=== PATIENT | male | born 1965 | race Caucasian/White ===

== ENCOUNTER 2022-05-02 13:34 | Emergency (ER) | payer OTHER ==
--- NOTE | 2022-05-02 14:22 | ERPHSYRPT ---
- History of Present Illness Time Seen by Provider: 05/02/22 14:22 Patient Subjective Stated Complaint: pt here from cardiac rehab, nurse states she was unable to get htn down. pt only co is feeling tried, Triage Nursing Assessment: pt alert, resp easy, skin w/d/pale, able to walk in, Allergies/Adverse Reactions: No Known Drug Allergies Allergy (Unverified 05/02/22 13:43) Home Medications: Albuterol Sulfate [Albuterol Sulfate Hfa] 1 ea DAILY 05/02/22 [History] Clopidogrel Bisulfate [Clopidogrel] 75 mg PO DAILY 05/02/22 [History] Lisinopril 20 mg [Zestril 20 MG] 20 mg PO DAILY 05/02/22 [History] Metoprolol Succinate 50 mg [Toprol Xl 50 MG] 50 mg PO DAILY 05/02/22 [History] Tamsulosin HCl 0.4 mg [Flomax 0.4 MG] 1 ea DAILY 05/02/22 [History] Hx Tetanus, Diphtheria Vaccination/Date Given: No Hx Influenza Vaccination/Date Given: No Hx Pneumococcal Vaccination/Date Given: No Immunizations Up to Date: Yes Travel Risk - International Travel Have you traveled outside of the country in past 3 weeks: No - Coronavirus Screening Are you exhibiting any of the following symptoms?: No Close contact with a COVID-19 positive Pt in past 14-21 Days: No - Vaccine Status Have you recieved a Covid-19 vaccination: Yes Recreational Therapist: Unknown - Vaccination Dates Date of 2cond Vaccination (if applicable): 2020 Dates if Unknown: ? - Past Medical History Cardiac History: Coronary Artery Disease, Hypertension, Myocardial Infarction (MA) GI Medical History: Ulcer - Past Surgical History Past Surgical History: Yes Cardiac: CABG Gastrointestinal: Other Musculoskeletal: Orthopedic Surgery Other Surgical History: ulcer surgery - Social History Smoking Status: Never smoker Exposure to second hand smoke: No Drug Use: none Patient Lives Alone: No - Nursing Vital Signs Nursing Vital Signs: Initial Vital Signs Temperature 97.2 F 05/02/22 13:56 Pulse Rate 60 05/02/22 13:56 Respiratory Rate 18 05/02/22 13:56 Blood Pressure 182/112 05/02/22 13:56 O2 Sat by Pulse Oximetry 95 05/02/22 13:56 Pain Scale Pain Intensity 0 - Physical Exam SpO2: 95 - Course Nursing assessment & vital signs reviewed: Yes EKG Interpreted by Me: RATE (59), Sinus Rhythm, NORMAL AXIS, prolonged QT interval (471), Q-wave (old), Other (No new ST/T wave changes) Ordered Tests: Active Orders 24 hr Category Date Time Status Radiological Defense Officer STAT Care 05/02/22 14:23 Active EKG-ER Only STAT Care 05/02/22 14:22 Active Pulse Oximetry (ED) STAT Care 05/02/22 14:22 Active CHEST WITH CONTRAST [CT] Stat Exams 05/02/22 14:55 Completed CBC W DIFF Stat Lab 05/02/22 14:23 Completed CMP Stat Lab 05/02/22 14:23 Completed D-DIMER QUANTITATIVE Stat Lab 05/02/22 14:23 Completed TROPONIN Q4H Lab 05/02/22 14:23 Completed TROPONIN Q4H Lab 05/02/22 18:30 Ordered TROPONIN Q4H Lab 05/02/22 22:30 Ordered Medication Summary Generic Name Dose Route Start Last Admin Trade Name Biggq PRN Reason Stop Dose Admin Chlorthalidone 25 mg 05/02/22 15:30 05/02/22 15:42 Chlorthalidone 25 Mg Tablet PO 06/01/22 15:29 25 mg DAILY JERAD Administration Discontinued Medications Generic Name Dose Route Start Last Admin Trade Name Freq PRN Reason Stop Dose Admin Hydralazine HCl 10 mg 05/02/22 14:24 05/02/22 15:42 Hydralazine Hcl 20 Mg/Ml Vial IV 05/02/22 14:25 10 mg STAT ONE Administration Hydralazine HCl Confirm 05/02/22 15:21 Hydralazine Hcl 20 Mg/Ml Vial Administered 05/02/22 15:22 Dose 20 mg .ROUTE .STK-MED ONE Hydralazine HCl 20 mg 05/02/22 16:24 05/02/22 16:45 Hydralazine Hcl 20 Mg/Ml Vial IV 05/02/22 16:25 20 mg STAT ONE Administration Hydralazine HCl Confirm 05/02/22 16:45 Hydralazine Hcl 20 Mg/Ml Vial Administered 05/02/22 16:46 Dose 20 mg .ROUTE .STK-MED ONE Lab/Rad Data: Laboratory Result Diagrams 05/02/22 14:23 05/02/22 14:23 Laboratory Results 05/02/22 05/02/22 05/02/22 Range/Units 14:23 14:23 14:23 WBC (4.0-10.5) x10^3/uL RBC (4.1-5.6) x10^6/uL Hgb (12.5-18.0) g/dL Hct (42-50) % MCV (78-100) fL MCH (26-32) pg MCHC (32-36) g/dL RDW (11.5-14.0) % Plt Count (150-450) x10^3/uL MPV (7.5-11.0) fL Gran % (36.0-66.0) % Immature Gran % (Auto) (0.00-0.4) % Nucleat RBC Rel Count (0.00-0.1) % Eos # (Auto) (0-0.5) x10^3/uL Immature Gran # (Auto) (0.00-0.03) x10^3u/L Absolute Lymphs (auto) (1.0-4.6) x10^3/uL Absolute Monos (auto) (0.0-1.3) x10^3/uL Absolute Nucleated RBC (0.00-0.01) x10^3u/L Lymphocytes % (24.0-44.0) % Monocytes % (0.0-12.0) % Eosinophils % (0.00-5.0) % Basophils % (0.0-0.4) % Absolute Granulocytes (1.4-6.9) x10^3/uL Basophils # (0-0.4) x10^3/uL D-Dimer 1.44 H* (0.0-0.50) mg/L Sodium 140 (137-145) mmol/L Potassium 3.8 (3.5-5.1) mmol/L Chloride 107 (98-107) mmol/L Carbon Dioxide 24 (22-30) mmol/L Anion Gap 12.5 (5-15) MEQ/L BUN 21 H (9-20) mg/dL Creatinine 0.93 (0.66-1.25) mg/dL Estimated GFR > 60.0 ML/MIN Glucose 98 (74-106) mg/dL Calcium 8.5 (8.4-10.2) mg/dL Total Bilirubin 0.60 (0.2-1.3) mg/dL AST 33 (17-59) U/L ALT 21 (0-50) U/L Alkaline Phosphatase 80 (38-126) U/L Troponin I 0.050 H* (0.000-0.034) ng/mL Serum Total Protein 7.6 (6.3-8.2) g/dL Albumin 4.0 (3.5-5.0) g/dL 05/02/22 Range/Units 14:23 WBC 8.7 (4.0-10.5) x10^3/uL RBC 4.44 (4.1-5.6) x10^6/uL Hgb 12.8 (12.5-18.0) g/dL Hct 40.8 L (42-50) % MCV 91.9 (78-100) fL MCH 28.8 (26-32) pg MCHC 31.4 L (32-36) g/dL RDW 13.2 (11.5-14.0) % Plt Count 256 (150-450) x10^3/uL MPV 10.5 (7.5-11.0) fL Gran % 54.6 (36.0-66.0) % Immature Gran % (Auto) 0.2 (0.00-0.4) % Nucleat RBC Rel Count 0.0 (0.00-0.1) % Eos # (Auto) 0.23 (0-0.5) x10^3/uL Immature Gran # (Auto) 0.02 (0.00-0.03) x10^3u/L Absolute Lymphs (auto) 2.85 (1.0-4.6) x10^3/uL Absolute Monos (auto) 0.79 (0.0-1.3) x10^3/uL Absolute Nucleated RBC 0.00 (0.00-0.01) x10^3u/L Lymphocytes % 32.9 (24.0-44.0) % Monocytes % 9.1 (0.0-12.0) % Eosinophils % 2.7 (0.00-5.0) % Basophils % 0.5 (0.0-0.4) % Absolute Granulocytes 4.74 (1.4-6.9) x10^3/uL Basophils # 0.04 (0-0.4) x10^3/uL D-Dimer (0.0-0.50) mg/L Sodium (137-145) mmol/L Potassium (3.5-5.1) mmol/L Chloride (98-107) mmol/L Carbon Dioxide (22-30) mmol/L Anion Gap (5-15) MEQ/L BUN (9-20) mg/dL Creatinine (0.66-1.25) mg/dL Estimated GFR ML/MIN Glucose (74-106) mg/dL Calcium (8.4-10.2) mg/dL Total Bilirubin (0.2-1.3) mg/dL AST (17-59) U/L ALT (0-50) U/L Alkaline Phosphatase (38-126) U/L Troponin I (0.000-0.034) ng/mL Serum Total Protein (6.3-8.2) g/dL Albumin (3.5-5.0) g/dL - Progress Progress: unchanged Air Movement: good Progress Note: 05/02/22 16:51 D-dimer elevated at 1.44, Troponin elevated at 0.05, CTA chest neg for PE, borderline cardiomegaly w/ tiny right pleural effusion, new subcentimeter gallstone w/ gallbladder wall thickening. Repeat abd exam does show minimal RUQ TTP. Patient sees Dr. Amaya for cardiology and would like to go to [facility]. His daughter who is an ER nurse at [facility] will escort the patient to [facility]. Patients BP remains elevated after 10mg IV hydralazine, 25mg Chlorthaladone and 20mg IV hydralazine in the 180s/110s. Blood Culture(s) Obtained: No Antibiotics given: No Counseled pt/family regarding: lab results, rad results Medical Desision Making - Diagnostic Testing Diagnostic test were ordered, analyzed, and reviewed by me: Yes Radiological Interpretation: Reviewed by me - Risk of complications The pt has a mod risk of morbidity or mortality based on: Need for prescription drug management - Departure Departure Disposition: Home Clinical Impression: Hypertensive urgency, Elevated d-dimer, Elevated troponin Condition: Stable Critical Care Time: No Referrals: MACKENZIE MCCARTHY [COURTESY STAFF] - Follow up/PCP as directed Instructions: Malignant Hypertension (DC)
[2022-05-02] MEDS ORDERED: APRESOLINE 20 MG/ML INJ IV ONE ×2 (14:24→16:24)
[2022-05-02 14:29] LABS: Absolute Neutrophil Ct (ANC) 4.74 x10^3/uL (1.4-6.9); BASOPHIL % 0.5 % (0.0-0.4); Basophil (Absolute #) 0.04 x10^3/uL (0-0.4); Eosinophil % 2.7 % (0.00-5.0); Eosinophil (Absolute #) 0.23 x10^3/uL (0-0.5); Hematocrit 40.8 % (42-50); Hemoglobin 12.8 g/dL (12.5-18.0); IMMATURE GRAN # 0.02 x10^3u/L (0.00-0.03); IMMATURE GRAN % 0.2 % (0.00-0.4); Lymphocyte (Absolute #) 2.85 x10^3/uL (1.0-4.6); Lymphocytes % 32.9 % (24.0-44.0); Mean Cell Volume 91.9 fL (78-100); Mean Corpuscular Hemoglobin 28.8 pg (26-32); Mean Corpuscular Hgb Concent. 31.4 g/dL (32-36); Mean Platelet Volume 10.5 fL (7.5-11.0); Monocyte (Absolute #) 0.79 x10^3/uL (0.0-1.3); Monocytes % 9.1 % (0.0-12.0); Neutrophil % 54.6 % (36.0-66.0); Platelet Count 256 x10^3/uL (150-450); Red Blood Count 4.44 x10^6/uL (4.1-5.6); Red Cell Distribution Width 13.2 % (11.5-14.0); White Blood Count 8.7 x10^3/uL (4.0-10.5)
[2022-05-02 14:50] LABS: ALKALINE PHOSPHATASE 80 U/L (38-126); ANION GAP 12.5 MEQ/L (5-15); BLOOD UREA NITROGEN 21 mg/dL (9-20); CHLORIDE 107 mmol/L (98-107); Calcium 8.5 mg/dL (8.4-10.2); Carbon Dioxide 24 mmol/L (22-30); Creatinine 1 0.93 mg/dL (0.66-1.25); EST GLOMERULAR FILTRATION RATE > 60.0 ML/MIN; Glucose 98 mg/dL (74-106); Potassium 3.8 mmol/L (3.5-5.1); SGOT/AST 33 U/L (17-59); SGPT/ALT 21 U/L (0-50); SODIUM 140 mmol/L (137-145); Total Protein 7.6 g/dL (6.3-8.2)
[2022-05-02] MEDS ORDERED: APRESOLINE 20 MG/ML INJ ONE ×2 (15:21→16:45)
[2022-05-02] MEDS ORDERED: CHLORTHALIDONE PO SCH (15:30)
--- NOTE | 2022-05-02 16:37 | XRAY ---
Indication: Short of breath and weakness. Elevated d-dimer. Hypertension. Multiple contiguous axial images obtained through the chest using 100 cc Isovue 370 contrast. Comparison: July 07, 2013 Good opacification of the pulmonary arteries to include the lobar and segmental branches. No pulmonary embolus. Heart now borderline enlarged with interval CABG. Aorta normal in course and caliber without aneurysm/dissection. Stable chunky subcarinal calcified nodes. No pathologic mediastinal/hilar lymphadenopathy. Lungs demonstrates new tiny right effusion and scattered subsegmental atelectasis/scarring left lung greater than right. No suspicious pulmonary mass, infiltrate, or pneumothorax. Bony thorax intact with mild degenerative changes throughout the spine and new sternotomy wires. Limited upper abdomen demonstrates new 8 mm gallstone with wall thickening. Impression: 1. Negative pulmonary embolus. 2. New borderline cardiomegaly with tiny right effusion. Rule out mild/early cardiac decompensation. 3. New subcentimeter gallstone with wall thickening. Rule out cholecystitis.
[2022-05-02 17:05] VITALS: BP 152/86; PULSE 68; O2SAT 96
== END 2022-05-02 17:13 | disposition home or self-care (01) ==
LOC: ED 13:34
DX: I16.0 Hypertensive urgency (principal); I10 Essential (primary) hypertension; R79.1 Abnormal coagulation profile; R77.8 Other specified abnormalities of plasma proteins; Z79.02 Long term (current) use of antithrombotics/antiplatelets; Z79.899 Other long term (current) drug therapy
CPT/HCPCS: 36000; 36415; 71260; 80053; 84484; 85025; 85379; 93005; 93041; 94760; 96374; 96376; 99284; J0360